=== PATIENT | female | born 1995 | race Caucasian/White ===

== ENCOUNTER → 2025-04-12 14:46 | Outpatient (CLI) | payer OTHER, SELFPAY ==
[2025-04-12 16:00] LABS: HCG Quantitative /Beta subunit 920.62 mIU/mL
== END ==
PROVIDERS: PCP Internal Medicine; Referring Provider Obstetrics & Gynecology; Visit Provider Obstetrics & Gynecology
DX: Z32.01 Encounter for pregnancy test, result positive (principal)
CPT/HCPCS: 36415; 84702